=== PATIENT | female | born 1980 | race Two or more races ===

== ENCOUNTER 2022-09-14 02:35 | Emergency (ER) | payer MEDICAID ==
[~2022-09-14] VITALS: Ht 162.6 cm; Wt 57.7 kg
[2022-09-14] MEDS ORDERED: TETANUS-DIPTH-ACEL PERTUSSIS 0.5ML SYR Tdap IM ONE (06:00)
[2022-09-14] MEDS ORDERED: cefTRIAXone SOD 1,000 MG VL IM ONE (06:00)
[2022-09-14] MEDS ORDERED: ACETAMINOPHEN 325 MG TAB PO ONE (06:00)
[2022-09-14] MEDS ORDERED: CEPH500C PO (06:02)
[2022-09-14] MEDS ORDERED: ACET500T58 PO (06:02)
[2022-09-14 06:44] VITALS: BP 103/64
== END 2022-09-14 06:45 | disposition home or self-care (01) ==
LOC: ER 02:35
DX: O26.891 Other specified pregnancy related conditions, first trimester (principal); L03.011 Cellulitis of right finger; Z3A.01 Less than 8 weeks gestation of pregnancy
CPT/HCPCS: 90471; 90715; 96372; 99284; J0696